=== PATIENT | female | born 1950 | race African-American/Black ===

== ENCOUNTER 2017-04-18 10:38 | Emergency (ER) | payer OTHER, MEDICAID ==
[~2017-04-18] VITALS: Ht 154.9 cm; Wt 52.0 kg
[2017-04-18 11:17] VITALS: BP 142/67
[2017-04-18] MEDS ORDERED: [UNRECOGNIZED DRUG - REMARK] (11:21)
[2017-04-18] MEDS ORDERED: ACETAMINOPHEN 500MG TABLET PO ONE (13:15)
[2017-04-18] MEDS ORDERED: ACETAMINOPHEN WITH CODEINE 300/30MG TABLET PO ONE (13:30)
[2017-04-18] MEDS ORDERED: IBUPROFEN 600MG TABLET PO ONE (13:30)
== END 2017-04-18 15:46 | disposition home or self-care (01) ==
LOC: ER 10:55
DX: S93.601A Unspecified sprain of right foot, initial encounter (principal); M25.571 Pain in right ankle and joints of right foot; W10.9XXA Fall (on) (from) unspecified stairs and steps, initial encounter; Y93.89 Activity, other specified; Y92.89 Other specified places as the place of occurrence of the external cause; M85.80 Other specified disorders of bone density and structure, unspecified site; Z85.3 Personal history of malignant neoplasm of breast; Z88.8 Allergy status to other drugs, medicaments and biological substances; Z98.890 Other specified postprocedural states
CPT/HCPCS: 73610; 73630; 99284

== ENCOUNTER 2017-11-15 12:58 | Emergency (ER) | payer OTHER, MEDICAID ==
[~2017-11-15] VITALS: Ht 154.9 cm; Wt 51.6 kg
[~2017-11-15 12:58] MED LIST: [UNRECOGNIZED DRUG - REMARK]
[2017-11-15 16:08] VITALS: BP 148/72
== END 2017-11-15 16:11 | disposition home or self-care (01) ==
LOC: ER 12:58
DX: Z48.01 Encounter for change or removal of surgical wound dressing (principal); F41.9 Anxiety disorder, unspecified; Z88.4 Allergy status to anesthetic agent; Z90.12 Acquired absence of left breast and nipple
CPT/HCPCS: 99283